=== PATIENT | male | born 1980 | race Caucasian/White ===

== ENCOUNTER 2016-02-15 09:02 | Day surgery (SDC) | payer OTHER ==
[2016-02-13 09:39] VITALS: BMI 25.0
[2016-02-15 09:15] VITALS: TEMP 97.6
[2016-02-15] MEDS ORDERED: LIDOCAINE 1% 20 ML VIAL (10MG/ML) FOR IV START SQ ONE (09:23)
[2016-02-15] MEDS ORDERED: LACTATED RINGERS 1,000 ML IV ONE ×2 (09:23→12:15)
[2016-02-15] MEDS ORDERED: BUPIVACAINE (PF) 0.5% 30 ML VIAL ONE (09:59)
[2016-02-15] MEDS ORDERED: fentaNYL (PF) 50 MCG/ML 2 ML AMP ONE (09:59)
[2016-02-15] MEDS ORDERED: TRIAMCINOLONE ACETONIDE 40 MG/ML 1 ML VIAL ONE (09:59)
[2016-02-15] MEDS ORDERED: MIDAZOLAM 2 MG/2 ML VIAL ONE (09:59)
[2016-02-15] MEDS ORDERED: IV FLUID CONTINUATION 450 ML IV ONE (10:25)
[2016-02-15 10:34] VITALS: RESP 16
[2016-02-15 10:43] VITALS: BP 137/85; PULSE 71
--- NOTE | 2016-02-15 10:58 | P.PCN ---
Date of Procedure: 02/15/16 Anesthesia: MAC Surgeon: Heladio Schulz Pathology: none sent Condition: stable Disposition: PACU Description of Procedure: PREOPERATIVE DIAGNOSIS: Cervical spondylosis without myelopathy, cervicogenic headache. POSTOPERATIVE DIAGNOSIS: same PROCEDURES: Diagnostic bilateral C4, C5, C6 medial branch with fluoroscopic guidance ANESTHESIA: Local with 1% lidocaine; IV sedation with Versed and fentanyl EBL: Minimal PROCEDURE INDICATION: This is a patient with neck pain and headaches secondary to cervical arthropathy unresponsive to more conservative treatments. PROCEDURE DESCRIPTION / TECHNIQUE: The patient was seen and identified in the preoperative area. Risks, benefits, complications, and alternatives were discussed with the patient (including but not limited to incomplete pain relief , bleeding, infection, nerve damage, and allergies to medications), the patient agreed to proceed with the procedure and signed the consent after all questions were answered. IV was started. Vital signs remained stable throughout the procedure. Patient was taken to the OR and time out was completed. The patient was placed in the prone position on the procedure table. A pillow was placed under the patients chest to increase the cervical interlaminar space. The cervical area was prepped and draped in the usual sterile fashion. Critical pause was taken. Vital signs were closely monitored during the procedure. Conscious sedation was used during the procedure to decrease patients anxiety. Using cross-table lateral fluoroscopy, the centroid of the trapezoid of right C4 , was identified, marked, and localized with 1% lidocaine. Subsequently, a 22 G spinal needle was advanced guided by fluoroscopy to the centroid of the trapezoid of C4. Needle tip position was confirmed at the centroid of the trapezoids of C4 with anteroposterior fluoroscopy. Subsequently, 1 ml of a combination of 40 mg Kenalog and 5 ml of preservative-free Bupivacaine 0.5% was injected after negative aspiration for blood and CSF. Needle was then removed intact the same procedure was repeated at the right C5 and C6 levels, and then repeated for the C4, C5, and C6 medial branch areas on the left side. COMPLICATIONS: No acute complications. COMMENTS: DISPOSITION / PLANS: The patient was placed in a supine position and transferred to the recovery area in a stable condition for observation and was discharged from the recovery room after meeting discharge criteria. Home discharge instructions given to the patient by the staff. The patient was reexamined prior to discharge and there were no issues. The patient will schedule a follow up repeat MBB procedure in 2-4 weeks if he has good relief.
--- NOTE | 2016-02-15 13:47 | FL ---
EXAMINATION TYPE: FL guided pain mgmt statistic DATE OF EXAM: 02/15/2016 10:27 AM HISTORY: Pain rt cervical facet blocks. dr nguyen. 6 sec fl time
== END 2016-02-15 11:09 | disposition home or self-care (01) ==
LOC: ORPAIN 09:02
PROVIDERS: ATTEND Anesthesiology
DX: M47.812 Spondylosis without myelopathy or radiculopathy, cervical region (principal); R51 Headache; Z79.1 Long term (current) use of non-steroidal anti-inflammatories (NSAID)
CPT/HCPCS: 64490; 64491; 64492; J2250; J3301; J3010

== ENCOUNTER 2016-04-08 06:51 | Day surgery (SDC) | payer OTHER ==
[2016-04-04 15:30] VITALS: BMI 25.1
[2016-04-08] MEDS ORDERED: LACTATED RINGERS 1,000 ML IV SCH (07:15)
[2016-04-08 07:50] VITALS: RESP 16; TEMP 97.8
[2016-04-08] MEDS ORDERED: BUPIVACAINE (PF) 0.5% 30 ML VIAL ONE (08:37)
[2016-04-08] MEDS ORDERED: MIDAZOLAM 2 MG/2 ML VIAL ONE (08:37)
[2016-04-08] MEDS ORDERED: fentaNYL (PF) 50 MCG/ML 2 ML AMP ONE (08:37)
[2016-04-08] MEDS ORDERED: DEXAMETHASONE SOD PHOS (MDV) 100 MG/10 ML VIAL ONE (08:37)
[2016-04-08] MEDS ORDERED: IV FLUID CONTINUATION 1,000 ML IV ONE (09:14)
--- NOTE | 2016-04-08 09:15 | FL ---
EXAMINATION TYPE: FL guided pain mgmt statistic DATE OF EXAM: 04/08/2016 9:12 AM HISTORY: Flouroscopy time 18 seconds of fluoroscopy provided. IMPRESSION: 1. Fluoroscopy time.
--- NOTE | 2016-04-08 09:18 | P.PCN ---
Date of Procedure: 04/08/16 Surgeon: Heladio Schulz Pathology: none sent Condition: stable Disposition: PACU Description of Procedure: PREOPERATIVE DIAGNOSIS: Cervical spondylosis without myelopathy, cervicogenic headache. POSTOPERATIVE DIAGNOSIS: same PROCEDURES: Diagnostic bilateral C4, C5, C6 medial branch with fluoroscopic guidance ANESTHESIA: Local with 1% lidocaine; IV sedation with Versed and fentanyl EBL: Minimal PROCEDURE INDICATION: This is a patient with neck pain and headaches secondary to cervical arthropathy unresponsive to more conservative treatments. No use of blood thinners. Good relief x 1 month from cervical MBB at last visit. PROCEDURE DESCRIPTION / TECHNIQUE: The patient was seen and identified in the preoperative area. Risks, benefits, complications, and alternatives were discussed with the patient (including but not limited to incomplete pain relief , bleeding, infection, nerve damage, and allergies to medications), the patient agreed to proceed with the procedure and signed the consent after all questions were answered. IV was started. Vital signs remained stable throughout the procedure. Patient was taken to the OR and time out was completed. The patient was placed in the prone position on the procedure table. A pillow was placed under the patients chest to increase the cervical interlaminar space. The cervical area was prepped and draped in the usual sterile fashion. Critical pause was taken. Vital signs were closely monitored during the procedure. Conscious sedation was used during the procedure to decrease patients anxiety. Using cross-table lateral fluoroscopy, the centroid of the trapezoid of right C4 , was identified, marked, and localized with 1% lidocaine. Subsequently, a 22 G spinal needle was advanced guided by fluoroscopy to the centroid of the trapezoid of C4. Needle tip position was confirmed at the centroid of the trapezoids of C4 with anteroposterior fluoroscopy. Subsequently, 1 ml of a combination of 10 mg Decadron and 5 ml of preservative-free Bupivacaine 0.5% was injected after negative aspiration for blood and CSF. Needle was then removed intact the same procedure was repeated at the right C5 and C6 levels, and then repeated for the C4, C5, and C6 medial branch areas on the left side. COMPLICATIONS: No acute complications. COMMENTS: DISPOSITION / PLANS: The patient was placed in a supine position and transferred to the recovery area in a stable condition for observation and was discharged from the recovery room after meeting discharge criteria. Home discharge instructions given to the patient by the staff. The patient was reexamined prior to discharge and there were no issues. The patient will schedule a follow-up in clinic in 4 weeks to discuss medications, as he has recently stopped using THC. We will schedule cervical RFA if relief.
[2016-04-08 09:25] VITALS: BP 133/83; PULSE 68
== END 2016-04-08 09:33 | disposition home or self-care (01) ==
LOC: ORPAIN 06:51
PROVIDERS: ATTEND Anesthesiology
DX: M47.812 Spondylosis without myelopathy or radiculopathy, cervical region (principal); R51 Headache; M46.92 Unspecified inflammatory spondylopathy, cervical region; Z79.1 Long term (current) use of non-steroidal anti-inflammatories (NSAID); Z79.899 Other long term (current) drug therapy
CPT/HCPCS: 64490; 64491; 64492; 99152; 99153; J2250; J3010; J1100